=== PATIENT | male | born 1940 | race Caucasian/White ===

== ENCOUNTER 2016-10-02 20:46 | Emergency (ER) | payer OTHER, MEDICARE ==
[~2016-10-02] VITALS: Ht 175.3 cm; Wt 127.0 kg
[~2016-10-02 20:46] MED LIST: AMARYL1 MG PO; COUMADIN 5 MG TA5 MG PO; FISH OIL CONCEN1 SGL PO; FUROSEMIDE20 MG PO; LASIX20 MG PO; LOPRESSOR 25MG25 MG PO; LUMIGAN 2.5 ML2.5 M1 OPH; METOPROLOL TART25 M1 PO; MULTIVITAMIN1 TAB PO; NATURAL IRON65 MG PO; OMEPRAZOLE40 MG PO; PERCOCET 325 MG1 TA2 PO; PRINIVIL 5MG5 MG PO; RIVA15T PO; SIMVASTATIN10 MG PO; TERAZOSIN5 MG PO; TOPROL XL25 MG PO; TYLENOL TAB 32325 MG PO; VITAMIN B-121000 MC3 PO; VITAMIN D32000 I1 PO; XARELTO15 MG PO
--- NOTE | 2016-10-02 20:58 | ED GI/GU/ABDOMINAL COMPLAINT ---
History of Present Illness General Chief Complaint: Abdominal Pain/Flank Pain Stated Complaint: ABD PAIN Source: patient Exam Limitations: no limitations Vital Signs & Intake/Output Vital Signs & Intake/Output Vital Signs Date Time Temp Pulse Resp B/P Pulse O2 O2 Flow FiO2 Ox Delivery Rate 10/03 022 98.1 89 18 127/82 98 Room Air 10/02 2049 97.8 92 24 125/73 96 Room Air ED Intake and Output 10/03 0000 10/02 1200 Intake Total 1000 Output Total Balance 1000 Intake, IV 1000 Patient 280 lb Weight Allergies Coded Allergies: NO KNOWN ALLERGIES (11/30/15) Reconcile Medications CHOLECALCIFEROL (VITAMIN D3) (Vitamin D-3) 2,000 UNIT CAPSULE 1 SGL PO DAILY SUPPLEMENT (Reported) Cyanocobalamin (Vitamin B-12) 1,000 MCG TABLET 1 TAB PO DAILY SUPPLEMENT ( Reported) FERROUS SULFATE (IRON) (Unknown Strength) TABLET 1 TAB PO DAILY SUPPLEMENT ( Reported) Glimepiride (Amaryl) 1 MG TAB 1 TAB PO BID DIABETES (Reported) Lisinopril (Prinivil) 5 MG TABLET 1 TAB PO DAILY BP (Reported) Magnesium Citrate (Citrate Of Magnesia) 300 ML SOLUTION 296 ML PO TID PRN CONSTIPATION Metoprolol Tartrate 25 MG TABLET 1 TAB PO DAILY AFIB (Reported) PATIENT TAKES 50MG IN AM AND 25MG AT NIGHT Multivitamin (Multiple Vitamins) 1 EACH TABLET 1 TAB PO DAILY SUPPLEMENT ( Reported) OMEGA-3 FATTY ACIDS (Fish Oil Concentrate) 1,000 MG CAPSULE 1 SGL PO TID SUPPLEMENT (Reported) Omeprazole 40 MG CAPSULE.DR 1 CAP PO DAILY GI (Reported) Polyethylene Glycol 3350 (Miralax) 17 GRAM/DOSE POWDER 17 GM PO BID CONSTIPATION/REGULARITY mix with water, juice, soda, coffee or tea Rivaroxaban (Xarelto) 15 MG TABLET 1 TAB PO DAILY A-FIB (Reported) Restart Xarelto the evening of 12/02/15. Simvastatin (Zocor) 10 MG TABLET 1 TAB PO QPM CHOLESTEROL (Reported) TERAZOSIN HCL (Terazosin HCl) 5 MG CAPSULE 1 CAP PO BID BLADDER (Reported) Triage Note: PER PT LOW ABD PAIN ALL DAY, +NAUSEA NO VOMITING NO DIARRHEA LAST BM THIS AM A LITTLE Triage Nurses Notes Reviewed? yes Duration: day(s): Timing: recent history Quality/Severity: cramping Location: unknown Radiation: no radiation Activities at Onset: none Prior Abdominal Problems: none Modifying Factors: Worsens With: defecating. Associated Symptoms: abdominal pain HPI: 75 yo gentleman with diffuse lower abdominal pain and nausea/vomiting since this morning. He notes also constipation, and difficulty with bowel movmenet. No fever, chills, diarrhea, chest pain, shortness of breath. He is otherwise well. Past History Travel History Traveled to [place] past 21 day No Medical History Any Pertinent Medical History? 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 No Review of Systems Review of Systems Constitutional: Reports: no symptoms. EENTM: Reports: no symptoms. Respiratory: Reports: no symptoms. Cardiovascular: Reports: no symptoms. GI: Reports: no symptoms. Genitourinary: Reports: no symptoms. Musculoskeletal: Reports: no symptoms. Skin: Reports: no symptoms. Neurological/Psychological: Reports: no symptoms. Hematologic/Endocrine: Reports: no symptoms. Immunologic/Allergic: Reports: no symptoms. All Other Systems: Reviewed and Negative Physical Exam Physical Exam General Appearance: well developed/nourished, mild distress Head: atraumatic, normal appearance Eyes: Bilateral: normal appearance. Ears, Nose, Throat, Mouth: hearing grossly normal, dry mucosa Neck: normal inspection Respiratory: normal breath sounds, chest non-tender, no respiratory distress, quiet respiration, lungs clear Cardiovascular: regular rate/rhythm Gastrointestinal: normal bowel sounds, soft, mild diffuse lower abdominal tenderness in right and left lower quadrants Back: normal inspection Extremities: normal range of motion Neurologic/Psych: no motor/sensory deficits, awake, alert, oriented x 3 Skin: intact, normal color, warm/dry Core Measures ACS in differential dx? No Severe Sepsis Present: No Septic Shock Present: No Progress Differential Diagnosis: constipation vs diverticulitis vs other. Plan of Care: Orders Procedure Date/time Status URINALYSIS 10/03 43 Complete TROPONIN LEVEL 10/02 2051 Complete LACTIC ACID 10/02 2051 Complete COMPREHENSIVE METABOLIC PANEL 10/02 2051 Complete CBC WITHOUT DIFFERENTIAL 10/02 2051 Complete EKG 10/02 2051 Active Laboratory Tests 10/03/16 0101: Urine Color YEL, Urine Clarity CLEAR, Urine pH 6.0, Ur Specific [place] 1.025, Urine Protein NEG, Urine Ketones NEG, Urine Nitrite NEG, Urine Bilirubin NEG, Urine Urobilinogen 1.0, Ur Leukocyte Esterase NEG, Ur Microscopic EXAM NOT REQUIRED, Urine Hemoglobin NEG, Urine Glucose NEG 10/02/162357: Lactic Acid Cancelled 10/02/162351: Lactic Acid Cancelled 10/02/162107: Anion Gap 10, Estimated GFR 46 L, BUN/Creatinine Ratio 20.0, Glucose 178 H, Lactic Acid 1.2, Calcium 9.4, Total Bilirubin 0.8, AST 86 H, ALT 64, Alkaline Phosphatase 127 H, Troponin I < 0.01, Total Protein 6.4, Albumin 3.6, Globulin 2.8, Albumin/Globulin Ratio 1.3, CBC w Diff NO MAN DIFF REQ, RBC 4.79, MCV 76.4 L, MCH 24.5 L, RDW 17.5 H, MPV 7.5, Gran % 70.3, Lymphocytes % 19.3 L, Monocytes % 9.0, Eosinophils % 0.9, Basophils % 0.5, Absolute Granulocytes 3.7, Absolute Lymphocytes 1.0 L, Absolute Monocytes 0.5, Absolute Eosinophils 0, Absolute Basophils 0, PUBS MCHC 32.0 L 10/02/162057: Lactic Acid Cancelled Diagnostic Imaging: Viewed by Me: CT Scan. Discussed w/RAD: CT Scan. Radiology Impression: abd/pelvic ct... no acute change... full report below. CXR Impression: no acute abnormality, no infiltrates, normal size heart, normal mediastinum Initial ED EKG: paced... no acute changes Comments: PATIENT: MARIELOS HILLIARD PRESENT AGE: 75 PATIENT ACCOUNT NO: [id number] : 39 LOCATION: [facility] ORDERING PHYSICIAN: ALEXIS OMALLEY MD SERVICE DATE: 10/02/16 EXAM TYPE: CAT - CT ABD & PELVIS W/ ORAL CONTRA EXAMINATION: CT ABDOMEN AND PELVIS WITH CONTRAST CLINICAL INFORMATION: Abdominal pain. COMPARISON: CT abdomen and pelvis 02/10/2014. TECHNIQUE: Multidetector volumetric imaging was performed from the superior aspect of the liver through the pubic symphysis following administration of oral contrast. Sagittal and coronal reformatted images were obtained on the technologist's workstation. DLP: 1695 mGy-cm FINDINGS: Limited evaluation of the solid abdominal viscera in the absence of intravenous contrast. LUNG BASES: Evaluation of the included lung bases is notable for a small hiatal hernia. The visualized lung bases are otherwise unremarkable. No pleural or pericardial effusions are identified. LIVER, GALLBLADDER, AND BILIARY TREE: The liver is normal in size, shape, and attenuation. No focal hepatic lesion or biliary ductal dilatation is present. The gallbladder is surgically absent. PANCREAS: Generalized pancreatic atrophy. No peripancreatic inflammatory changes or fluid collections. SPLEEN: Unremarkable. ADRENAL GLANDS: Unremarkable. KIDNEYS AND URETERS: Evaluation of the bilateral kidneys and renal collecting systems is notable for bilateral renal cortical atrophy. No renal or ureteral stones are identified and there is no hydroureteronephrosis of either kidney or renal collecting system. There is nonspecific mild bilateral perinephric stranding. BLADDER: Unremarkable. GASTROINTESTINAL TRACT: Evaluation of the gastrointestinal system is notable for postsurgical changes related to prior gastric bypass surgery. Ingested oral contrast is identified within the stomach remnant as well as within proximal loops of small bowel. Abdominal and pelvic bowel loops are normal in caliber, without findings indicative of obstruction or ileus. There is scattered colonic diverticulosis, notably involving the descending and rectosigmoid colon, without secondary signs of acute diverticulitis. A normal-appearing appendix is present within the right lower quadrant of the abdomen. No organizing intra-abdominal or pelvic fluid collections are identified and there is no free intraperitoneal air. Incidental note is made of redundancy of the sigmoid colon. ABDOMINAL WALL: Small fat-containing bilateral inguinal hernias. LYMPH NODES: No significant abdominal or pelvic adenopathy. VASCULAR: Normal course and caliber of the abdominal aorta and its branching vessels, without aneurysmal dilatation. Limited evaluation for vascular patency in the absence of intravenous contrast. Scattered atherosclerosis of the abdominal aorta and its branching vessels. PELVIC VISCERA: Unremarkable. OSSEOUS STRUCTURES: No acute osseous abnormality. Normal alignment of the imaged thoracolumbar spine. Mild multilevel degenerative changes of the thoracolumbar spine. No visible destructive osseous lesions. IMPRESSION: No acute findings within the abdomen or pelvis to explain patient symptomatology. There are postsurgical changes related to prior gastric bypass surgery. The gastrojejunal anastomosis appears unremarkable. Abdominal and pelvic bowel loops are normal in caliber, without findings indicative of obstruction or ileus. There is scattered colonic diverticulosis, notably involving the sigmoid colon, without secondary signs of acute diverticulitis. DICTATED BY: JAKE MENDOZA MD DATE/TIME DICTATED:10/02/162312 ELECTRONIC RESOURCES LIBRARIAN:IDRIS DATE/TIME TRANSCRIBED:10/02/162312 CONFIDENTIAL, DO NOT COPY WITHOUT APPROPRIATE AUTHORIZATION. <Electronically signed in Other Vendor System> SIGNED BY: JAKE MENDOZA MD 10/02/163 Departure Departure Disposition: HOME OR SELF CARE Condition: Stable Clinical Impression Primary Impression: Abdominal pain Secondary Impressions: Constipation Referrals: ESTEFANÍA PEÑA,SETH Alvares (PCP/Family) Departure Forms: Customer Survey General Discharge Information Prescriptions: Current Visit Scripts Magnesium Citrate (Citrate Of Magnesia) 296 ML PO TID PRN CONSTIPATION #8 BOT Polyethylene Glycol 3350 (Miralax) 17 GM PO BID #1 BOT mix with water, juice, soda, coffee or tea Comments pt feeling better after supportive medications. labs benign. ct scan benign. pt safe for discharge with close follow up advised.
[2016-10-02 21:24] LABS: ABSOLUTE BASOPHIL COUNT 0 /CUMM (0.0-0.2); ABSOLUTE EOSINOPHIL COUNT 0 /CUMM (0.0-0.7); ABSOLUTE GRANULOCYTE CT 3.7 /CUMM (1.4-6.5); ABSOLUTE MONOCYTE COUNT 0.5 /CUMM (0.10-0.60); BASOPHIL % 0.5 % (0.0-2.0); EOSINOPHIL % 0.9 % (0-5); GRANULOCYTE % 70.3 % (42.2-75.2); HEMATOCRIT 36.5 % (42-52); MEAN CORPUSCULAR HGB 24.5 PG (27.0-31.0); MEAN CORPUSCULAR VOLUME 76.4 FL (80.0-94.0); MEAN PLATELET VOLUME 7.5 FL (7.4-10.4); PLATELET COUNT 185 /CUMM (130-400); RBC DISTRIBUTION WIDTH 17.5 % (11.5-14.5); RED BLOOD CELL CT 4.79 /CUMM (4.70-6.10); WHITE BLOOD CELL COUNT 5.2 /CUMM (4.8-10.8)
--- NOTE | 2016-10-02 21:54 | RADIOLOGY REPORT ---
EXAMINATION: XR CHEST CLINICAL INFORMATION: Abdominal pain. COMPARISON: Multiple priors, most recent chest radiographs dated 02/09/2015. TECHNIQUE: 2 views of the chest were obtained. FINDINGS: A left chest wall pacer is identified with its single lead terminating over the right heart. Mild left lower lobe atelectasis. No focal airspace consolidation. No pleural effusion or pneumothorax. Unchanged cardiomediastinal silhouette. No acute osseous abnormality. IMPRESSION: No focal consolidation. No significant interval change since the prior examination.
--- NOTE | 2016-10-02 23:24 | CT SCAN REPORT ---
EXAMINATION: CT ABDOMEN AND PELVIS WITH CONTRAST CLINICAL INFORMATION: Abdominal pain. COMPARISON: CT abdomen and pelvis 02/10/2014. TECHNIQUE: Multidetector volumetric imaging was performed from the superior aspect of the liver through the pubic symphysis following administration of oral contrast. Sagittal and coronal reformatted images were obtained on the technologist's workstation. DLP: 1695 mGy-cm FINDINGS: Limited evaluation of the solid abdominal viscera in the absence of intravenous contrast. LUNG BASES: Evaluation of the included lung bases is notable for a small hiatal hernia. The visualized lung bases are otherwise unremarkable. No pleural or pericardial effusions are identified. LIVER, GALLBLADDER, AND BILIARY TREE: The liver is normal in size, shape, and attenuation. No focal hepatic lesion or biliary ductal dilatation is present. The gallbladder is surgically absent. PANCREAS: Generalized pancreatic atrophy. No peripancreatic inflammatory changes or fluid collections. SPLEEN: Unremarkable. ADRENAL GLANDS: Unremarkable. KIDNEYS AND URETERS: Evaluation of the bilateral kidneys and renal collecting systems is notable for bilateral renal cortical atrophy. No renal or ureteral stones are identified and there is no hydroureteronephrosis of either kidney or renal collecting system. There is nonspecific mild bilateral perinephric stranding. BLADDER: Unremarkable. GASTROINTESTINAL TRACT: Evaluation of the gastrointestinal system is notable for postsurgical changes related to prior gastric bypass surgery. Ingested oral contrast is identified within the stomach remnant as well as within proximal loops of small bowel. Abdominal and pelvic bowel loops are normal in caliber, without findings indicative of obstruction or ileus. There is scattered colonic diverticulosis, notably involving the descending and rectosigmoid colon, without secondary signs of acute diverticulitis. A normal-appearing appendix is present within the right lower quadrant of the abdomen. No organizing intra-abdominal or pelvic fluid collections are identified and there is no free intraperitoneal air. Incidental note is made of redundancy of the sigmoid colon. ABDOMINAL WALL: Small fat-containing bilateral inguinal hernias. LYMPH NODES: No significant abdominal or pelvic adenopathy. VASCULAR: Normal course and caliber of the abdominal aorta and its branching vessels, without aneurysmal dilatation. Limited evaluation for vascular patency in the absence of intravenous contrast. Scattered atherosclerosis of the abdominal aorta and its branching vessels. PELVIC VISCERA: Unremarkable. OSSEOUS STRUCTURES: No acute osseous abnormality. Normal alignment of the imaged thoracolumbar spine. Mild multilevel degenerative changes of the thoracolumbar spine. No visible destructive osseous lesions. IMPRESSION: No acute findings within the abdomen or pelvis to explain patient symptomatology. There are postsurgical changes related to prior gastric bypass surgery. The gastrojejunal anastomosis appears unremarkable. Abdominal and pelvic bowel loops are normal in caliber, without findings indicative of obstruction or ileus. There is scattered colonic diverticulosis, notably involving the sigmoid colon, without secondary signs of acute diverticulitis.
[2016-10-03] MEDS ORDERED: MIRALAX119 GM PO (00:42)
[2016-10-03] MEDS ORDERED: CITRATE OF MAG300 ML PO (00:42)
[2016-10-03 02:23] VITALS: BP 127/82
== END 2016-10-03 02:24 ==
LOC: ERH 20:46
PROVIDERS: Emergency Medicine
DX: K59.00 Constipation, unspecified (principal); I48.91 Unspecified atrial fibrillation; R10.9 Unspecified abdominal pain; K57.90 Diverticulosis of intestine, part unspecified, without perforation or abscess without bleeding; Z79.899 Other long term (current) drug therapy
CPT/HCPCS: 74176; 81003; 93005; 93010; 96361; 96372; 96374; 96375; J0131; J0500; J2405

== ENCOUNTER → 2017-08-30 | Day surgery (SDC) | payer OTHER, MEDICARE ==
[~2017-08-30] VITALS: Ht 172.7 cm; Wt 127.0 kg
[~2017-08-30] MED LIST changes: +CITRATE OF MAG300 ML PO; +MIRALAX119 GM PO
--- NOTE | 2017-08-30 09:23 | Operative Report ---
Operative/Inv Procedure Report Surgery Date: 08/30/17 Name of Procedure: Cataract extraction lens implantation right eye Pre-Operative Diagnosis: Age-related cataract right eye 20/25 vision 20/50 glare vision Post-Operative Diagnosis: Same Estimated Blood Loss: none Surgeon/Caddie: Shabbir PEÑA,Azael Alamo Anesthesia: local monitored anesthesi Complications: None Operative/Procedure Note Note: The patient was brought to the operating room standard monitoring equipment was attached the patient was prepped and draped in the usual fashion for intraocular surgery. A lid speculum was placed to retract the lids. The case was begun by making a temporal incision with a 2.4 mm keratome. The eye was stabilized with a Magdaleno ring during this incision. 1 mL of non-preserved lidocaine was introduced into the anterior chamber to provide anesthesia. The anterior chamber was then filled and deepened with viscoelastic. A curvilinear capsulorrhexis was achieved using a 30-gauge needle and is a cystotome and capsulorrhexis was finished using a Utrata forceps. A second or paracentesis incision was made temporally with a 1 mm MVR blade. The lens was then hydrodissected with balanced salt solution and found to be rotatable. The lens was emulsified using phacoemulsification and a modified four-quadrant cracking technique. The residual cortical material was removed using automated irrigation and aspiration and as much of the anterior capsular rim was cleaned as well as possible. The posterior capsule was cleaned first with the automated machine on a low setting and then manually with a Mario squeegee. The capsular bag was deepened with viscoelastic. The lens a Technis 1 22.0 Diopter placed into the bag under direct visualization and rotated so that the haptics were at 12 and 6:00. Viscoelastic was then removed from the eye by flushing it out and then by automated irrigation and aspiration. The eye was pressurized to a normal tone. 1/10 of a cc of vancomycin solution was introduced into the anterior chamber to provide antibiotic prophylaxis. The wounds were sealed by hydrating the stroma adjacent to them and the eye was left at a proper tone after the wounds were checked and found not to be leaking. The lid speculum was removed from the orbit. Antibiotic and steroid drops were placed on the eye and then the eye was shielded. Monitoring equipment was removed from the patient and the patient was removed from the operative suite to the holding area. The patient tolerated the procedure well and will be seen in the office tomorrow.
== END ==
LOC: STS 01:50
DX: H25.9 Unspecified age-related cataract (principal); E11.9 Type 2 diabetes mellitus without complications; I10 Essential (primary) hypertension
CPT/HCPCS: J2250; V2632